=== PATIENT | female | born 1955 | race African-American/Black ===

== ENCOUNTER 2019-12-23 12:03 | Emergency (ER) | payer BC, OTHER ==
[~2019-12-23] VITALS: Ht 170.2 cm; Wt 56.7 kg
[~2019-12-23 12:03] MED LIST: ALBUTEROL INHAL17 GM IH; ATIVAN1 MG PO; BRONCHAID; LIPITOR 20 MG T20 M1 PO; LISINOPRIL2.5 MG PO; LORAZEPAM 1 MG T1 M1 PO; METFORMIN HCL500 MG PO; PREDNISONE 20 M20 MG PO; TYLENOL325 MG PO; VENTOLIN HFA 1818 GM INH
[2019-12-23] MEDS ORDERED: TRAZODONE HCL50 MG PO (12:54)
[2019-12-23 12:56] VITALS: BP 118/81
== END 2019-12-23 13:00 | disposition home or self-care (01) ==
LOC: ER 12:03
DX: G47.00 Insomnia, unspecified (principal); J45.909 Unspecified asthma, uncomplicated; Z79.899 Other long term (current) drug therapy; Z88.5 Allergy status to narcotic agent

== ENCOUNTER 2021-03-15 11:25 | Emergency (ER) | payer OTHER ==
[~2021-03-15] VITALS: Ht 167.6 cm; Wt 56.7 kg
--- NOTE | ~2021-03-15 | EMS ---
[facility] [address] [place] [address] EMS Patient Care Report Name: LORENZO BOATENG Room #: DEP HERNAN Dangelo#: [id number] Admission: 03/15/21 Attend Phys: Discharge: 03/15/21 Date of : 53 Report #: [id number] THIS REPORT FOR: //name// Report Transmitted: 03/16/2021 13:02 EMS Care Summary [place], [place]/[facility] Incident [id number] @ 03/15/2021 10:42 Incident Location [address] [place], [place] [id number] Patient LORENZO BOATENG Female, 65 Years 1955 Patient Address [address] [place], [place] [id number] Patient History Other,Asthma, Patient Allergies Codeine, Patient Medications Albuterol, Chief Complaint toe pain Disposition Transported No Lights/[place] Dispatch Reason Traumatic Injury Transported To [facility] Narrative BLS 41 dispatched to a residence on a traumatic injury. [facility] [address] [place] [address] EMS Patient Care Report Name: LORENZO BOATENG Room #: DEP CrisNato#: [id number] Admission: 03/15/21 Attend Phys: Discharge: 03/15/21 Date of : 53 Report #: [id number] Patient states she broke her toe 6 months ago and believes it "healed wrong so she wants to get in touch with a surgeon to get it rebroke." Upon EMS arrival patient was found waiting outside her apartment. Patient walked herself over to the ambulance where she was met and loaded onto the stretcher. Patient was belted in and vitals were taken en route to [facility] where patient was taken to triage and care was handed over to receiving nurse. EMS back in service with no further complaints. Initial Vitals @10:58P: 92,R: 16,BP: 134/90,Pain: 10/10,GCS: 15,SpO2: 96,Revised Trauma: 12, @11:07P: 88,R: 16,BP: 132/85,Pain: 10/10,GCS: 15,CO: 2,SpO2: 96,Revised Trauma: 12, Assessments @10:58MENTAL:Event Oriented,Time Oriented,Person Oriented,Place Oriented,SKIN:HEENT:Head/Face: No Abnormalities,Neck/Airway: No Abnormalities,LUNG SOUNDS:General: No Abnormalities,ABDOMEN:General: No Abnormalities,PELVIS//GI:EXTREMITIES:Right Leg: Other,Left Arm: No Abnormalities,Right Arm: No Abnormalities,Left Leg: No Abnormalities,PULSE:NEURO:No Abnormalities, Impression Extremity Pain Procedures @11:06 BLS Assessment Response: Unchanged Timeline 10:40,Call Received 10:40,Dispatch Notified 10:42,Dispatched 10:44,En Route 10:57,On Scene 10:57,At Patient 10:58,Depart Scene 10:58,BP: 134/90 M,PULSE: 92,RR: 16 R,SPO2: 96 Ox,ETCO2: ,BG: ,PAIN: 10,GCS: 15, 11:06,BLS Assessment,Response: Unchanged 11:07,BP: 132/85 M,PULSE: 88,RR: 16 R,SPO2: 96 Ox,ETCO2: ,BG: ,PAIN: 10,GCS: 15, 11:18,At Destination 11:43,Call Closed Disclaimer [facility] [address] [place] [address] EMS Patient Care Report Name: LORENZO BOATENG Room #: DEP [facility].#: [id number] Admission: 03/15/21 Attend Phys: Discharge: 03/15/21 Date of : 53 Report #: [id number] v1.1 Copyright 2021 [employer] This EMS Care Summary contains data elements from the applicable legal record (which may be displayed differently). It is designed to provide pertinent information for the following purposes: continuity of care, clinical quality, and state data reporting. The complete legal record is available to ED staff and administrators of the receiving hospital in [employer] Patient Tracker. All data is provided "as is."
[~2021-03-15 11:25] MED LIST changes: +TRAZODONE HCL50 MG PO
[2021-03-15 12:08] VITALS: BP 114/75
== END 2021-03-15 13:47 | disposition left against medical advice (07) ==
LOC: ER 11:25
DX: M79.675 Pain in left toe(s) (principal); J45.909 Unspecified asthma, uncomplicated; Z53.21 Procedure and treatment not carried out due to patient leaving prior to being seen by health care provider; Z88.5 Allergy status to narcotic agent